=== PATIENT | female | born 1990 ===

== ENCOUNTER 2019-07-28 19:49 | Outpatient (REF) | payer MEDICAID, SELFPAY ==
[2019-07-28 21:09] LABS: Bilirubin Negative (Negative); Blood Trace-intact (Negative); Clarity Sl Cloudy (Clear); Glucose Negative (Negative); Ketones Negative (Negative); Leukocyte Esterase Negative (Negative); Nitrite Negative (Negative); Specific Gravity 1.015 (1.005-1.025); Urobilinogen 0.2 EU/dL (Up TO 0.2); pH >= 9.0 (5-8)
[2019-07-28 21:28] LABS: Epithelial Cells Negative HPF (Negative); Other Cells Negative (Negative); RBC Negative HPF (0-2); WBC Negative HPF (0-5)
[2019-07-28 21:29] LABS: Bacteria Many HPF (Negative); C & S Indicated? Yes; Casts Negative LPF (Negative); Crystals Many Amorphous HPF (Negative); Mucus Negative (Negative)
== END 2019-07-28 20:09 ==
LOC: NCHCN 19:49
PROVIDERS: Visit Provider Nurse Practitioner Family
DX: R30.0 Dysuria (principal)
CPT/HCPCS: 81003; 81015; 87086

== ENCOUNTER 2020-12-27 16:44 | Outpatient (REF) | payer MEDICAID, SELFPAY ==
--- NOTE | 2020-12-27 16:40 | PAPFT_PTH ---
PATIENT: Noel Ingram LOC: [facility]#:[id number] AGE/SX: 30/F ROOM: RE12/27/[address]: Kristen Hardy : 1990 BED: DIS: 12/27/2020 SPEC #: [id number] RECD: 12/30/20 08:25 STATUS: RAY LANG #: [id number] ADRIANNE: 12/27/20 16:[address]: Kristen Hardy DEPT[facility] Cytology RECD BY: Samara Mejia Tissues: 1 - CX/ENDOCX FOR PAP SMEARS Procedures: PAP THIN PREP/[facility] Screening Comments: [id number]
== END 2020-12-27 16:45 | disposition home or self-care (01) ==
LOC: NCHCN 16:44
PROVIDERS: Visit Provider Nurse Practitioner Family
DX: Z12.4 Encounter for screening for malignant neoplasm of cervix (principal); Z00.00 Encounter for general adult medical examination without abnormal findings
CPT/HCPCS: 88142